=== PATIENT | female | born 1940 | race Caucasian/White ===

== ENCOUNTER 2018-04-13 15:47 | Emergency (ER) | payer MEDICARE, OTHER ==
[~2018-04-13] VITALS: Ht 162.6 cm; Wt 78.9 kg
[2018-04-13] MEDS ORDERED: LISI20 PO (16:01)
[2018-04-13] MEDS ORDERED: Omeprazole20 M1 PO (16:02)
[2018-04-13] MEDS ORDERED: HYDCHL25 PO (16:02)
== END 2018-04-13 16:40 | disposition home or self-care (01) ==
LOC: ER 15:47
DX: S63.502A Unspecified sprain of left wrist, initial encounter (principal); I10 Essential (primary) hypertension; E78.00 Pure hypercholesterolemia, unspecified; Z79.899 Other long term (current) drug therapy; W01.0XXA Fall on same level from slipping, tripping and stumbling without subsequent striking against object, initial encounter
CPT/HCPCS: 29125; 73110; 99283-25